=== PATIENT | male | born 1955 | race Caucasian/White ===

== ENCOUNTER 2024-12-24 18:25 | Emergency (ER) | payer OTHER ==
[2024-12-24 18:34] VITALS: TEMP 98.6; BMI 33.0
[2024-12-24 20:40] LABS: ABSOLUTE IMMATURE GRANULOCYTES 0.03 x10^3/uL (0.0-0.031); BASOPHILS # 0.09 x10^3/uL (0.01-0.08); HEMOGLOBIN 16.2 g/dL (13.7-17.5); MCHC 33.8 g/dl (32.3-36.5); MEAN CELL VOLUME 91.4 fl (79.0-92.2); MEAN PLT VOLUME 10.1 fl (9.4-12.4); MONOCYTE # 0.88 x10^3/uL (0.30-0.82); MONOCYTE % 8.7 % (5.3-12.2); PLATELET COUNT 260 x10^3/uL (163-337); RDW 13.5 % (12.2-16.4)
[2024-12-24 20:57] LABS: POTASSIUM 4.6 mmol/L (3.5-5.1)
[2024-12-24 20:59] LABS: ALBUMIN 3.9 g/dl (3.4-5.0); BLOOD UREA NITROGEN 22.5 mg/dL (7-18); CALCIUM 9.3 mg/dL (8.5-10.1)
[2024-12-24 21:00] LABS: MAGNESIUM 2.6 mg/dL (1.8-2.4)
[2024-12-24 21:03] LABS: CREATININE 1.5 mg/dL (0.55-1.3)
[2024-12-24 21:04] LABS: BILIRUBIN,TOTAL 0.6 mg/dL (0.2-1); TOT PROT 7.1 g/dl (6.4-8.2)
[2024-12-24 21:07] LABS: N-TERMINAL BNP 88.1 pg/ml (5-125)
[2024-12-24] MEDS ORDERED: LORazepam 1 MG TABLET ONE (21:16)
[2024-12-24] MEDS: LORazepam 2 MG TABLET PO ONE (21:25)
[2024-12-24] MEDS: SODIUM CHLORIDE 0.9% 500 ML INFUS.BAG IV ONE (21:25)
[2024-12-24 22:20] VITALS: RESP 16
[2024-12-24 23:26] LABS: POTASSIUM 5.2 mmol/L (3.5-5.1)
[2024-12-24 23:28] LABS: CALCIUM 8.7 mg/dL (8.5-10.1)
[2024-12-24 23:29] LABS: BLOOD UREA NITROGEN 21.8 mg/dL (7-18)
[2024-12-24 23:32] LABS: CREATININE 1.4 mg/dL (0.55-1.3)
[2024-12-25 01:05] VITALS: BP 155/87; PULSE 100
== END 2024-12-25 00:30 | disposition home or self-care (01) ==
LOC: JER 18:25
DX: R06.02 Shortness of breath (principal); R07.9 Chest pain, unspecified
CPT/HCPCS: 36415; 71045-TC-FY; 71275-TC; 80048; 80053; 83735; 83880; 84484; 85025; 86803; 93005; 93010; 99285-25; Q9967